=== PATIENT | female | born 1940 | race Caucasian/White ===

== ENCOUNTER 2020-12-03 09:31 | Emergency (ER) | payer MEDICARE, BC ==
[2020-12-03 09:55] VITALS: BP 158/84; PULSE 74
--- NOTE | 2020-12-03 09:58 | EDM.PDOC ---
ED HPI GENERAL MEDICAL PROBLEM - General Chief Complaint: Genitourinary Problem Stated Complaint: UTI Time Seen by Provider: 12/03/20 09:43 Source of Information: Reports: Patient History Limitations: Reports: No Limitations - History of Present Illness Onset: Today Onset Date: 12/03/20 Onset Time: 08:00 Quality: Reports: Burning Severity: Mild Improves with: Reports: None Worsens with: Reports: None Associated Symptoms: Reports: No Other Symptoms. Denies: Confusion, Diaphoresis, Fever/Chills, Headaches, Loss of Appetite, Malaise, Nausea/Vomiting, Rash, Shortness of Breath, Syncope - Related Data Allergies Allergy/AdvReac Type Severity Reaction Status Date / Time yellow dye Allergy Mild Rash Verified 01/05/18 10:14 levothyroxine sodium Allergy Rash Verified 01/05/18 10:14 [From Synthroid] Home Meds: Home Meds Digoxin [Digox] 250 mcg PO Q2D 10/23/13 [History] Ezetimibe [Zetia] 5 mg PO BEDTIME 10/23/13 [History] Levothyroxine [Synthroid] 100 mcg PO DAILY 10/23/13 [History] Sertraline [Zoloft] 150 mg PO BEDTIME 10/23/13 [History] atorvaSTATin [Lipitor] 20 mg PO BEDTIME 10/23/13 [History] Aspirin [Freeman Chewable] 81 mg PO BEDTIME 10/24/13 [History] Calcium Carbonate [Calcium] 500 mg PO DAILY 10/24/13 [History] Cholecalciferol (Vitamin D3) [Vitamin D] 2,000 unit PO BID 10/24/13 [History] Metoprolol Succinate [Toprol XL] 12.5 mg PO DAILY 10/24/13 [History] Acetaminophen [Tylenol Arthritis Pain] 650 mg PO DAILY PRN 01/01/17 [History] Cranberry 500 mg PO DAILY 01/01/17 [History] Cyanocobalamin (Vitamin B12) [Vitamin B12] 1 tab PO DAILY 01/01/17 [History] Magnesium 250 mg PO DAILY 01/01/17 [History] cephALEXin [Cephalexin] 500 mg PO BID #10 capsule 12/03/20 [Rx] Past Medical History HEENT History: Reports: Allergic Rhinitis, Cataract, Impaired Vision, Sinusitis Cardiovascular History: Reports: Afib, High Cholesterol, Hypertension Respiratory History: Reports: None Gastrointestinal History: Reports: None Genitourinary History: Reports: Urinary Incontinence, Other (See Below) 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 ARM FRACTURE. FOOT FRACTURE Neurological History: Reports: None Psychiatric History: Reports: Anxiety, Depression Endocrine/Metabolic History: Reports: Hypothyroidism, Osteopenia, Vitamin D Deficiency, Other (See Below) Other Endocrine/Metabolic History: PREAURICULAR ADENOPATHY Hematologic History: Reports: Other (See Below) Other Hematologic History: LOW MAGNESIUM LEVELS Immunologic History: Reports: None Oncologic (Cancer) History: Reports: None Dermatologic History: Reports: None, Other (See Below) Other Dermatologic History: ACNE ROSACEA. DERMATITIS - Infectious Disease History Infectious Disease History: Reports: Measles, Pertussis (Whooping Cough) - Past Surgical History Head Surgeries/Procedures: Reports: None HEENT Surgical History: Reports: Cataract Surgery, Oral Surgery, Other (See Below) Other HEENT Surgeries/Procedures: IMPLANTED BRIDGES Cardiovascular Surgical History: Reports: AAA Repair Respiratory Surgical History: Reports: None GI Surgical History: Reports: Appendectomy, Colonoscopy Female Surgical History: Reports: Hysterectomy Other Female Surgeries/Procedures: ABNORMAL MAMMOGRAM Endocrine Surgical History: Reports: None Neurological Surgical History: Reports: None Musculoskeletal Surgical History: Reports: None Oncologic Surgical History: Reports: None Social & Family History - Family History Family Medical History: No Pertinent Family History Cardiac: Reports: High Cholesterol, Hypertension Musculoskeletal: Reports: Arthritis Psychiatric: Reports: Other (See Below) Other Psychiatric Family History: ALCOHOL ADDICTION Oncologic: Reports: Breast, Lymphoma - Tobacco Use Tobacco Use Status *Q: Never Tobacco User Second Hand Smoke Exposure: No - Caffeine Use Caffeine Use: Reports: Coffee Other Caffeine Use: COFFEE AVERAGE 2 CUPS ED ROS GENERAL - Review of Systems Review Of Systems: See Below Constitutional: Reports: No Symptoms HEENT: Reports: No Symptoms Respiratory: Reports: No Symptoms Cardiovascular: Reports: No Symptoms Endocrine: Reports: No Symptoms GI/Abdominal: Reports: No Symptoms : Reports: Dysuria. Denies: Flank Pain, Frequency, Hematuria, Incontinence, U rgency Musculoskeletal: Reports: No Symptoms Skin: Reports: No Symptoms Neurological: Reports: No Symptoms Psychiatric: Reports: No Symptoms Hematologic/Lymphatic: Reports: No Symptoms Immunologic: Reports: No Symptoms ED EXAM, RENAL/ - Physical Exam Exam: See Below Exam Limited By: No Limitations General Appearance: Alert, WD/WN, No Apparent Distress Neck: Normal Inspection Respiratory/Chest: No Respiratory Distress, Lungs Clear, Normal Breath Sounds, No Accessory Muscle Use Cardiovascular: Normal Peripheral Pulses, Regular Rate, Rhythm, No Edema, No Gallop, No JVD, No Murmur, No Rub GI/Abdominal: Soft, Non-Tender, No Organomegaly, No Distention Back Exam: Normal Inspection, Full Range of Motion. No: CVA Tenderness (L), CVA Tenderness (R) Extremities: Normal Inspection, Normal Range of Motion, Non-Tender, No Pedal Edema, Normal Capillary Refill Neurological: Alert, Oriented, Normal Cognition, Normal Gait Psychiatric: Normal Affect, Normal Mood Skin Exam: Warm, Dry, Intact, Normal Color, No Rash Course - Vital Signs Last Recorded V/S: Last Vital Signs Temp 98.2 F 12/03/20 09:54 Pulse 74 12/03/20 09:54 Resp 18 12/03/20 09:54 BP 158/84 H 12/03/20 09:54 Pulse Ox 97 12/03/20 09:54 - Orders/Labs/Meds Orders: Active Orders 24 hr Category Date Time Status cephALEXin [Take Home: Cephalexin 500 MG, 4 Cap Pack] Med 12/03/20 10:23 Once 1 packet PO ONETIME ONE Labs: Laboratory Tests 12/03/20 Range/Units 10:04 Urine Color Yellow (YELLOW) Urine Appearance Clear (CLEAR) Urine pH 8.5 H (4.5-8.0) Ur Specific [place] 1.020 (1.003-1.020) Urine Protein Negative (NEGATIVE) mg/dL Urine Glucose (UA) Negative (NEGATIVE) mg/dL Urine Ketones Negative (NEGATIVE) mg/dL Urine Occult Blood Negative (NEGATIVE) Urine Nitrite Negative (NEGATIVE) Urine Bilirubin Negative (NEGATIVE) Urine Urobilinogen 0.2 (0.2-1.0) EU/dL Ur Leukocyte Esterase Small H (NEGATIVE) Urine RBC Not seen (0-5) /HPF Urine WBC 5-10 H (0-5) /HPF Ur Epithelial Cells Occasional H (NOT SEEN) /HPF Urinalysis Comment Departure - Departure Time of Disposition: 10:21 Disposition: Home, Self-Care 01 Condition: Fair Clinical Impression: UTI, Urinary tract infectious disease - Discharge Information *PRESCRIPTION DRUG MONITORING PROGRAM REVIEWED*: Not Applicable *COPY OF PRESCRIPTION DRUG MONITORING REPORT IN PATIENT SUNIL: Not Applicable Prescriptions: cephALEXin [Cephalexin] 500 mg PO BID #10 capsule Instructions: Urinary Tract Infection, Adult, [id number] Forms: ED Department Discharge Additional Instructions: Followup with your primary care provider Return to the ER for worsening of condition or any emergent concerns Cephalexin 500mg 1 pill twice a day for total of 7 days #4 take home: #10 sent to [facility] Avoid drinking caffeine Sepsis Event Note (ED) - Evaluation Sepsis Screening Result: No Definite Risk - Focused Exam Vital Signs: Vital Signs Temp Pulse Resp BP Pulse Ox 12/03/20 09:54 98.2 F 74 18 158/84 H 97 - My Orders Last 24 Hours: My Active Orders 12/03/20 10:23 cephALEXin [Take Home: Cephalexin 500 MG, 4 Cap Pack] 1 packet PO ONETIME ONE - Assessment/Plan Last 24 Hours: My Active Orders 12/03/20 10:23 cephALEXin [Take Home: Cephalexin 500 MG, 4 Cap Pack] 1 packet PO ONETIME ONE Plan: PLEASE SEE RN NOTE FOR PFSH
[2020-12-03] MEDS ORDERED: Cephalexin 500 MG Cap ONE (10:14)
[2020-12-03] MEDS ORDERED: Take Home: Cephalexin 500 MG Cap, 4 Cap Pack PO ONE (10:23)
== END 2020-12-03 10:40 | disposition home or self-care (01) ==
LOC: CC.ED 09:31
DX: N39.0 Urinary tract infection, site not specified (principal); I48.91 Unspecified atrial fibrillation; E78.00 Pure hypercholesterolemia, unspecified; I10 Essential (primary) hypertension; E03.9 Hypothyroidism, unspecified; M06.9 Rheumatoid arthritis, unspecified; Z91.048 Other nonmedicinal substance allergy status; Z88.8 Allergy status to other drugs, medicaments and biological substances; Z79.899 Other long term (current) drug therapy; Z79.82 Long term (current) use of aspirin
CPT/HCPCS: 81001; 99283; 99284; A9270-GY

== ENCOUNTER 2021-06-27 02:40 | Emergency (ER) | payer MEDICARE, BC ==
[2021-06-27 02:44] VITALS: BP 169/92; PULSE 84
--- NOTE | 2021-06-27 03:22 | EDM.PDOC ---
ED HPI GENERAL MEDICAL PROBLEM - General Chief Complaint: General Stated Complaint: Tongue Pain Time Seen by Provider: 06/27/21 03:10 Source of Information: Reports: Patient History Limitations: Reports: No Limitations - History of Present Illness INITIAL COMMENTS - FREE TEXT/NARRATIVE: Nica is a 81 year old female who presents to the ED with c/o "tongue swelling." She reports she awoke and got up to go to the bathroom. Reports she then noticed her tongue felt weight on the left side and she was concerned it was swelling. She denies any chest pain or shortness of breath. She has not noticed any issue with her tongue prior to this. She is a nonsmoker. Also reports she has chronic UTIs and feels she has been having more urinary frequency. No other symptoms. Onset: Today Location: Reports: Other (left side of tongue) Associated Symptoms: Reports: No Other Symptoms - Related Data Allergies Allergy/AdvReac Type Severity Reaction Status Date / Time yellow dye Allergy Mild Rash Verified 06/27/21 02:44 levothyroxine sodium Allergy Rash Verified 06/27/21 02:44 [From Synthroid] Home Meds: Home Meds Digoxin [Digox] 250 mcg PO Q2D 10/23/13 [History] Ezetimibe [Zetia] 5 mg PO BEDTIME 10/23/13 [History] Levothyroxine [Synthroid] 100 mcg PO DAILY 10/23/13 [History] Sertraline [Zoloft] 150 mg PO BEDTIME 10/23/13 [History] atorvaSTATin [Lipitor] 20 mg PO BEDTIME 10/23/13 [History] Aspirin [Freeman Chewable] 81 mg PO BEDTIME 10/24/13 [History] Calcium Carbonate [Calcium] 500 mg PO DAILY 10/24/13 [History] Cholecalciferol (Vitamin D3) [Vitamin D] 2,000 unit PO BID 10/24/13 [History] Metoprolol Succinate [Toprol XL] 12.5 mg PO DAILY 10/24/13 [History] Acetaminophen [Tylenol Arthritis Pain] 650 mg PO DAILY PRN 01/01/17 [History] Cranberry 500 mg PO DAILY 01/01/17 [History] Cyanocobalamin (Vitamin B12) [Vitamin B12] 1 tab PO DAILY 01/01/17 [History] Magnesium 250 mg PO DAILY 01/01/17 [History] Past Medical History HEENT History: Reports: Allergic Rhinitis, Cataract, Impaired Vision, Sinusitis Cardiovascular History: Reports: Afib, High Cholesterol, Hypertension Respiratory History: Reports: None Gastrointestinal History: Reports: None Genitourinary History: Reports: Urinary Incontinence, Other (See Below) 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 ARM FRACTURE. FOOT FRACTURE Neurological History: Reports: None Psychiatric History: Reports: Anxiety, Depression Endocrine/Metabolic History: Reports: Hypothyroidism, Osteopenia, Vitamin D Deficiency, Other (See Below) Other Endocrine/Metabolic History: PREAURICULAR ADENOPATHY Hematologic History: Reports: Other (See Below) Other Hematologic History: LOW MAGNESIUM LEVELS Immunologic History: Reports: None Oncologic (Cancer) History: Reports: None Dermatologic History: Reports: None, Other (See Below) Other Dermatologic History: ACNE ROSACEA. DERMATITIS - Infectious Disease History Infectious Disease History: Reports: Measles, Pertussis (Whooping Cough) - Past Surgical History Head Surgeries/Procedures: Reports: None HEENT Surgical History: Reports: Cataract Surgery, Oral Surgery, Other (See Below) Other HEENT Surgeries/Procedures: IMPLANTED BRIDGES Cardiovascular Surgical History: Reports: AAA Repair Respiratory Surgical History: Reports: None GI Surgical History: Reports: Appendectomy, Colonoscopy Female Surgical History: Reports: Hysterectomy Other Female Surgeries/Procedures: ABNORMAL MAMMOGRAM Endocrine Surgical History: Reports: None Neurological Surgical History: Reports: None Musculoskeletal Surgical History: Reports: None Oncologic Surgical History: Reports: None Social & Family History - Family History Family Medical History: No Pertinent Family History Cardiac: Reports: High Cholesterol, Hypertension Musculoskeletal: Reports: Arthritis Psychiatric: Reports: Other (See Below) Other Psychiatric Family History: ALCOHOL ADDICTION Oncologic: Reports: Breast, Lymphoma - Tobacco Use Tobacco Use Status *Q: Never Tobacco User Second Hand Smoke Exposure: No - Caffeine Use Caffeine Use: Reports: None Other Caffeine Use: COFFEE AVERAGE 2 CUPS ED ROS GENERAL - Review of Systems Review Of Systems: Comprehensive ROS is negative, except as noted in HPI. ED EXAM, GENERAL - Physical Exam Exam: See Below Exam Limited By: No Limitations General Appearance: Alert, WD/WN, No Apparent Distress Throat/Mouth: Normal Lips, Normal Teeth, Normal Gums, Normal Oropharynx, Normal Voice, No Airway Compromise, Other (~2 cm x 1 cm raised slightly whitish firm area to left anterior aspect of tongue, no angioedema) Head: Atraumatic, Normocephalic Neck: Normal Inspection, Supple, Non-Tender, Full Range of Motion Respiratory/Chest: No Respiratory Distress, Lungs Clear, Normal Breath Sounds, No Accessory Muscle Use, Chest Non-Tender Cardiovascular: Normal Peripheral Pulses, Regular Rate, Rhythm, No Edema, No Gal lop, No JVD, No Murmur, No Rub GI/Abdominal: Normal Bowel Sounds, Soft, Non-Tender, No Organomegaly, No Distention, No Abnormal Bruit, No Mass Back Exam: No: CVA Tenderness (L), CVA Tenderness (R) Course - Vital Signs Last Recorded V/S: Last Vital Signs Temp 98.0 F 06/27/21 02:42 Pulse 84 06/27/21 02:42 Resp 14 06/27/21 02:42 BP 169/92 H 06/27/21 02:42 Pulse Ox 96 06/27/21 02:42 - Orders/Labs/Meds Orders: Active Orders 24 hr Category Date Time Status CULTURE URINE [RM] Routine Lab 06/27/21 07:00 Received Labs: Laboratory Tests 06/27/21 Range/Units 07:00 Urine Color Yellow (YELLOW) Urine Appearance Clear (CLEAR) Urine pH 7.0 (4.5-8.0) Ur Specific [place] 1.025 H (1.003-1.020) Urine Protein Negative (NEGATIVE) mg/dL Urine Glucose (UA) Negative (NEGATIVE) mg/dL Urine Ketones Negative (NEGATIVE) mg/dL Urine Occult Blood Trace-intact H (NEGATIVE) Urine Nitrite Positive H (NEGATIVE) Urine Bilirubin Negative (NEGATIVE) Urine Urobilinogen 0.2 (0.2-1.0) EU/dL Ur Leukocyte Esterase Large H (NEGATIVE) Urine RBC Not seen (0-5) /HPF Urine WBC 10-20 H (0-5) /HPF Ur Epithelial Cells Few H (NOT SEEN) /HPF Urine Bacteria Many H (NOT SEEN) /HPF Departure - Departure Time of Disposition: 03:20 Disposition: Home, Self-Care 01 Condition: Good Clinical Impression: Tongue lesion, Urinary frequency - Discharge Information Referrals: Naina Frey TELEVISION SERVICER [Primary Care Provider] - Forms: ED Department Discharge Additional Instructions: - Given hardened characteristic of tongue lesion, appear it has been there some time - May need ENT referral for biopsy of area - Meds as directed for UTI - Rest and push fluids - Recommend follow up with PCP for recheck if area persists or does not improve - Return to ED for emergent needs Sepsis Event Note (ED) - Evaluation Sepsis Screening Result: No Definite Risk - Problem List & Annotations (1) Tongue lesion SNOMED Code(s): 965315425 Code(s): K14.8 - OTHER DISEASES OF TONGUE Status: Acute (2) UTI, Urinary tract infectious disease SNOMED Code(s): 73664258 Code(s): N39.0 - URINARY TRACT INFECTION, SITE NOT SPECIFIED Status: Acute - Problem List Review Problem List Initiated/Reviewed/Updated: Yes - My Orders Last 24 Hours: My Active Orders 06/27/21 07:00 CULTURE URINE [RM] Routine - Assessment/Plan Last 24 Hours: My Active Orders 06/27/21 07:00 CULTURE URINE [RM] Routine Assessment:: Tongue Lesion UTI Plan: Reassurance provided to patient that she is not experiencing angioedema. Discussed that tongue lesion has likely been there for some time given characteristics. She is unsure as she has never noticed it before. Recommend she monitor area for the next week. If area worsens or persists, recommend follow up with PCP as she will need to see ENT. Will start Ceftin for UTI. Follow up pending urine culture. See above for remaining plan.
== END 2021-06-27 03:30 | disposition home or self-care (01) ==
LOC: CC.ED 02:40
DX: K14.8 Other diseases of tongue (principal); R35.0 Frequency of micturition; I48.91 Unspecified atrial fibrillation; E78.00 Pure hypercholesterolemia, unspecified; I10 Essential (primary) hypertension; M06.9 Rheumatoid arthritis, unspecified; E03.9 Hypothyroidism, unspecified; Z91.048 Other nonmedicinal substance allergy status; Z88.8 Allergy status to other drugs, medicaments and biological substances; Z79.82 Long term (current) use of aspirin; Z79.899 Other long term (current) drug therapy
CPT/HCPCS: 81001; 87086; 87088; 87186; 99283

== ENCOUNTER 2025-06-19 16:30 | Emergency (ER) | payer MEDICARE, BC ==
[2025-06-19 16:37] VITALS: BP 131/85; PULSE 70
[2025-06-19 16:53] LABS: APPEARANCE,URINE CLOUDY (CLEAR); GLUCOSE,URINE NEGATIVE (NEGATIVE); OCCULT BLOOD,URINE LARGE (NEGATIVE)
[2025-06-19 17:00] LABS: WBC CLUMPS,URINE MODERATE /HPF (NOT SEEN)
[2025-06-19] MEDS: Take Home: Sulfamethoxazole/Trimethoprim 800-160 MG Tab, 6 Tab Pack PO ONE (17:17)
[2025-06-19] MEDS: Take Home: Phenazopyridine 95 MG Tab, 4 Tab Pack PO ONE (17:17)
== END 2025-06-19 18:12 | disposition home or self-care (01) ==
LOC: CC.ED 16:30
DX: N39.0 Urinary tract infection, site not specified (principal); E78.00 Pure hypercholesterolemia, unspecified; I10 Essential (primary) hypertension; E03.9 Hypothyroidism, unspecified; Z91.041 Radiographic dye allergy status; Z88.8 Allergy status to other drugs, medicaments and biological substances; Z79.82 Long term (current) use of aspirin; Z79.899 Other long term (current) drug therapy
CPT/HCPCS: 81001; 87086; 99283; A9270